=== PATIENT | male | born 1960 | race Caucasian/White ===

== ENCOUNTER 2019-04-03 16:02 | Observation (INO) | payer MEDICARE ==
[~2019-04-03] VITALS: Ht 170.2 cm; Wt 83.7 kg
[2019-04-03 17:50] LABS: BASOPHILS ABSOLUTE AUTO 0.05 K/mm3 (0.00-0.23); BASOPHILS PERCENT AUTO 1 % (0-2); EOSINOPHILS ABSOLUTE AUTO 0.23 K/mm3 (0.00-0.68); EOSINOPHILS PERCENT AUTO 3 % (0-6); Hematocrit 42.2 % (37.0-53.0); Hemoglobin 13.5 g/dL (13.5-17.5); IMMATURE GRAN ABSOLUTE AUTO 0.02 K/mm3 (0.00-0.10); IMMATURE GRAN PERCENT AUTO 0 % (0-1); LYMPHOCYTES ABSOLUTE AUTO 1.36 K/mm3 (0.84-5.20); LYMPHOCYTES PERCENT AUTO 17 % (21-46); MONOCYTES ABSOLUTE AUTO 0.78 K/mm3 (0.16-1.47); MONOCYTES PERCENT AUTO 10 % (4-13); Mean Corpuscular HGB 27.9 pg (26.0-34.0); Mean Corpuscular Volume 87 fL (80-100); Mean Platelet Volume 9.3 fL (9.1-12.4); NEUTROPHILS ABSOLUTE AUTO 5.43 K/mm3 (1.96-9.15); NEUTROPHILS PERCENT AUTO 69 % (41-73); Platelet Count 220 K/mm3 (150-400); RDW Coefficient Variation 14.1 % (11.7-14.2); RDW Standard Deviation 45.2 fL (35.1-46.3); Red Blood Cell Count 4.84 M/mm3 (4.30-5.90); White Blood Cell Count 7.87 K/mm3 (4.00-11.30)
[2019-04-03 18:58] LABS: Troponin I <0.015 ng/mL (0.000-0.040)
[2019-04-03 18:59] LABS: Alanine Aminotransfer (ALT/SGP 23 U/L (12-78); Albumin, Blood 3.7 g/dL (3.4-5.0); Albumin/Globulin Ratio 0.9 (0.8-1.8); Alk Phos 75 U/L (50-136); Anion Gap 5 mmol/L (6-16); Aspartate Aminotrans (AST/SGOT 22 U/L (12-37); Bilirubin, Total 0.4 mg/dL (0.1-1.0); Blood Urea Nitrogen 12 mg/dL (8-24); Bun/Creatinine Ratio 10.3 (12.0-20.0); CO2, Blood 27 mmol/L (21-32); Calcium, Blood 9.4 mg/dL (8.5-10.1); Chloride, Blood 107 mmol/L (98-108); Creatinine, Blood 1.16 mg/dL (0.60-1.20); Globulin, Blood 3.9 g/dL (2.2-4.0); Glomerular Filtration Rate >60 (60-); Glucose, Blood 79 mg/dL (70-99); Sodium, Blood 139 mmol/L (136-145); Total Protein, Blood 7.6 g/dL (6.4-8.2)
[2019-04-03] MEDS ORDERED: Aspirin EC81 MG PO (20:23)
--- NOTE | 2019-04-03 22:56 | NUR ---
PATIENT IS A NEW ADMIT FROM THE ED. SELF TRANSFER FROM [facility] TO BED. AXOX 4 AND INDEPENDENT IN THE ROOM. DENIES CHEST PAIN, N/V, AND SOB. PATIENT ORIENTED TO ROOM AND CALL LIGHT SYSTEM. NO CAFFEINE AT THIS TIME. ON RA. PATIENT RESTING WATCHING TV. CALL LIGHT IN REACH. WILL CONTINUE TO MONITOR.
--- NOTE | 2019-04-03 23:34 | NUR ---
CARDIOLOGY CONSULT CALLED IN TO ANSWERING SERVICE FOR ALYSON MARTIN MD. REASON CHEST PAIN.
--- NOTE | 2019-04-04 | NUR ---
TELEMETRY IN PLACE. TECH REPORTS NSR 85.
[2019-04-04 01:37] LABS: International Normalized Ratio 0.98; Prothrombin Time Results 10.4 Sec (9.7-11.5)
[2019-04-04 01:46] LABS: CHOL/HDL RATIO 2.2; Cholesterol 157 mg/dL (50-200); HDL Cholesterol 71 mg/dL (>39); LDL/HDL RATIO 1.1; Low Density Lipoprotein Chol 75 mg/dL (0-110); Magnesium, Blood 2.3 mg/dL (1.6-2.4); Triglycerides 54 mg/dL (30-160); Very Low Density Lipoprot Chol 11 mg/dL (6-32)
--- NOTE | 2019-04-04 03:27 | NUR ---
SHIFT SUMMARY PATIENT HAD NO ACUTE CHANGES OBSERVED THIS SHIFT. DENIES CHEST PAIN, SOB, AND N/V. AXOX 4 AND INDEPENDENT IN ROOM . TROPONINS NEGATIVE X TWO. PIV REMAINS INTACT. RENT AND HOUSING INVESTIGATOR REPORTS NSR 85. NO CAFFEINE. NPO FOUR HOURS BEFORE STRESS TEST. CARDIOLOGY CONSULT CALLED IN. VSS/AFEBRILE. PATIENT REPORTS HE LIVES IN [place] AND HERE FOR A [place]. COOPERATIVE WITH CARE. WATCHED TV AFTER ADMIT. CALL LIGHT IN REACH. BED IN LOWEST POSITION. WILL CONTINUE TO MONITOR UNTIL DAY SHIFT NURSE ASSUMES CARE.
--- NOTE | 2019-04-04 11:47 | NUR ---
PT STRESS TEST DCD BY . PT WAS TRANSPORTED TO THE [facility] FOR AN ANGIOGRAM AND POSSIBLE STENT PLACEMENT. DAUGHTER IS AT BEDSIDE WITH PT. CHARGE NURSE IS AWARE.
--- NOTE | 2019-04-04 17:12 | NUR ---
1630-Received as transfer from Medical Floor from the [facility] s/p Angiogram. Patient sleeping, difficult to arouse due to sedation with Ativan, Versed, and Fentanyl given during the procedure. Vital Signs stable upon transfer, see flow sheet for post-op vitals. Lung sounds are clear, no edema noted. 1645-Patient's son "Aldo" in to see patient, unable to get patient to open eyes due to sedation. 1715-No acute changes, Aldo left phone number on the board as contact #, also have daughter "Benita" phone number on the front of patient's chart.
--- NOTE | 2019-04-04 17:59 | NUR ---
SHIFT SUMMARY-PATIENT CONTINUES TO SLEEP, DIFFICULT TO AROUSE, IS RESPONSIVE TO NOXIOUS STIMULI. VITAL SIGNS REMAIN STABLE. DIASTOLIC BP CREEPING UP INTO 85-88 RANGE, MISSED DOSE OF METOPROLOL AT NOON DUE TO PROCEDURE AND SOMNOLENCE AFTER POSING ASPIRATION RISK. 1800-RELEASED 2 MLS FROM TRB BALLOON, SITE REMAINS CLEAR WITH NO BLEEDING OR HEMATOMA NOTED. 1815-2 MORE MLS REMOVED FROM TRB, NO BLEEDING NOTED OVER SITE.
[2019-04-04 19:21] LABS: U Amphetamine Screen DETECTED; U Barbituate Screen Not Detected; U Benzodiazapine Screen DETECTED; U Buprenorphine Screen Not Detected; U Cannabinoids Screen Not Detected; U Cocaine Screen Not Detected; U Methadone Screen Not Detected; U Methamphetamine Screen DETECTED; U Opiates Screen DETECTED; U Oxycodone Screen Not Detected; U Phencyclidine Screen Not Detected; U Propoxyphene Screen Not Detected
[2019-04-05 04:19] LABS: BASOPHILS ABSOLUTE AUTO 0.05 K/mm3 (0.00-0.23); BASOPHILS PERCENT AUTO 1 % (0-2); EOSINOPHILS ABSOLUTE AUTO 0.27 K/mm3 (0.00-0.68); EOSINOPHILS PERCENT AUTO 3 % (0-6); Hematocrit 41.8 % (37.0-53.0); Hemoglobin 13.5 g/dL (13.5-17.5); IMMATURE GRAN ABSOLUTE AUTO 0.03 K/mm3 (0.00-0.10); IMMATURE GRAN PERCENT AUTO 0 % (0-1); LYMPHOCYTES ABSOLUTE AUTO 2.45 K/mm3 (0.84-5.20); LYMPHOCYTES PERCENT AUTO 27 % (21-46); MONOCYTES ABSOLUTE AUTO 0.86 K/mm3 (0.16-1.47); MONOCYTES PERCENT AUTO 9 % (4-13); Mean Corpuscular HGB 27.3 pg (26.0-34.0); Mean Corpuscular HGB Conc 32.3 g/dL (31.5-36.5); Mean Platelet Volume 9.8 fL (9.1-12.4); NEUTROPHILS ABSOLUTE AUTO 5.47 K/mm3 (1.96-9.15); NEUTROPHILS PERCENT AUTO 60 % (41-73); Platelet Count 274 K/mm3 (150-400); RDW Standard Deviation 43.4 fL (35.1-46.3); Red Blood Cell Count 4.95 M/mm3 (4.30-5.90); White Blood Cell Count 9.13 K/mm3 (4.00-11.30)
[2019-04-05 04:20] LABS: Mean Corpuscular Volume 84 fL (80-100)
[2019-04-05 04:45] LABS: Anion Gap 6 mmol/L (6-16); Blood Urea Nitrogen 16 mg/dL (8-24); Bun/Creatinine Ratio 17.5 (12.0-20.0); CO2, Blood 24 mmol/L (21-32); Calcium, Blood 9.2 mg/dL (8.5-10.1); Chloride, Blood 107 mmol/L (98-108); Creatinine, Blood 0.92 mg/dL (0.60-1.20); Glomerular Filtration Rate >60 (60-); Glucose, Blood 104 mg/dL (70-99); Potassium, Blood 3.7 mmol/L (3.5-5.5); Sodium, Blood 137 mmol/L (136-145)
--- NOTE | 2019-04-05 07:28 | NUR ---
SHIFT SUMMARY PATIENT VERY SLEEPY AND DROWSY UPON THE BEGINNING OF THE SHIFT. HOWEVER, AFTER SEVERAL HOURS PATIENT BEGAN TO WAKE UP MORE. PATIENT DOES NOT APPEAR TO WANT TO ENGAGE STAFF IN CONVERSATION AND HAS BEEN IRRITABLE THROUGHOUT THE NIGHT. PATIENT GETS EASILY FRUSTRATED WHEN STAFF ATTEMPTS TO OBTAIN VITALS OR PROVIDE ANY TYPE OF CARE. PATIENT APPEARED TO WANT TO BE LEFT ALONE SO THAT HE COULD SLEEP. DR MARTIN IN TO SEE PATIENT THIS MORNING. ANGIO ACCESS SITE TO RIGHT WRIST APPEARS STABLE. NO SIGNS OF BLEEDING OR BRUISING. ARMBOARD IN PLACE, HOWEVER, PATIENT UNCOOPERATVIE WITH KEEPING IT ON EVEN AFER EDUCATION PROVIDED. ATTEMPTED TO PROVIDE POST ANGIO EDUCATION AND MOVEMENT RESTRICTION EDUCATION. VITAL SIGNS CHARTED. REPORT GIVEN TO ONCOMING RN.
--- NOTE | 2019-04-05 09:06 | NUR ---
Assumed care of patient from [facility] nurse around 0715. Patient sleeping and per report gets VERY ANGRY when disturbed. 0730-Dr. Roca to see patient, accompanied her into the room. Patient awakened and is unhappy, tells Dr. Roca that he will listen to her "at 10:00". Patient finally consents to listen to what she has to say, but refuses to sit up or remove the cover from his face during the conversation. Indicates yes or no with slight nod/shake of head. 0800-allowing patient to sleep.
--- NOTE | 2019-04-05 10:45 | NUR ---
Discharge Summary-Patient aroused enough to take a few bites of food and drink OJ with morning medications, then falls back to sleep around 1000. Right Wrist remains intact, arm board falling off-resecured. Discharge orders from Dr. Robin acknowledged. [id number]-Call placed to patient's daughter timi Joy.
[2019-04-05] MEDS ORDERED: ATOR40TA PO (11:26)
[2019-04-05] MEDS ORDERED: Isosorbide Mono30 MG PO (11:27)
[2019-04-05] MEDS ORDERED: CLOP75 PO (11:27)
[2019-04-05] MEDS ORDERED: METO25ER PO (11:28)
== END 2019-04-05 12:52 | disposition home or self-care (01) ==
LOC: ER 16:02 → MEDS 16:03 → PCU 04-04 16:11
PROVIDERS: Hospitalist; Internal Medicine Cardiovascular Disease; Nurse Practitioner Acute Care; Physician Assistant; ADMIT Internal Medicine
DX: I25.110 Atherosclerotic heart disease of native coronary artery with unstable angina pectoris (principal); I10 Essential (primary) hypertension; E78.5 Hyperlipidemia, unspecified; M54.9 Dorsalgia, unspecified; G89.29 Other chronic pain; F15.10 Other stimulant abuse, uncomplicated; E66.3 Overweight; Z91.14 Patient's other noncompliance with medication regimen; Z87.891 Personal history of nicotine dependence; Z79.82 Long term (current) use of aspirin
CPT/HCPCS: 36415; 71046; 76937; 80048; 80053; 80061; 83690; 83735; 84484; 85025; 85347; 85610; 92978; 93005; 93010; 93306; 93458; 93571; 99152; 99153; 99285-25; C1753; C1769; C1887; C1894; G0378; G0480; J1644; J2060; J3010; J7030; Q9967